=== PATIENT | female | born 1960 | race American Indian/Alaskan Native ===

== ENCOUNTER 2016-11-30 04:33 | Inpatient (IN) ==
[2016-11-20 12:04] LABS: Appearance,Urine CLEAR; Bilirubin,Urine NEG (NEG); Color,Urine YELLOW; Glucose,Urine (UA) NEGATIVE (NEG); Leukocyte Esterase,Urine NEG /uL (NEG); Nitrate,Urine NEG (NEG); Protein,Urine NEG (NEG); Specific Gravity,Urine 1.005 (1.000-1.035); Urine Blood NEG mg/dL (<0.03); Urobilinogen,Urine NEG (NEG)
[2016-11-20 12:39] LABS: Basophils # (Auto) 0 K/mcL (0.0-0.3); Basophils % (Auto) 0.3 % (0.0-2.0); Eosinophils # (Auto) 0.2 K/mcL (0.0-0.7); Lymphocytes # (Auto) 1.8 K/mcL (1.5-4.8); Lymphocytes % (Auto) 23.8 % (15.5-49.0); Mean Cell Volume 88.2 fL (80.0-100.0); Mean Corpuscular HGB Conc 33.1 g/dL (31.0-36.0); Mean Corpuscular Hemoglobin 29.2 pg (26.0-34.0); Monocytes # (Auto) 0.4 K/mcL (0.1-0.9); Monocytes % (Auto) 4.9 % (1.0-12.0); Platelet Count 256 K/mcL (140-440); RBC 4.68 M/mcL (4.00-5.20); Red Cell Distribution Width 14.1 % (11.5-14.5)
[2016-11-20 13:02] LABS: Blood Urea Nitrogen 12 mg/dl (6-20)
[2016-11-30] MEDS ORDERED: CELECOXIB 200 MG CAPSULE PO SCH (06:00)
[2016-11-30] MEDS ORDERED: PREGABALIN 75 MG CAPSULE PO SCH (06:00)
[2016-11-30] MEDS ORDERED: oxyCODONE 10 MG TAB.ER.12H PO SCH (06:00)
[2016-11-30] MEDS ORDERED: ceFAZolin 1 GM VIAL IV SCH (06:00)
[2016-11-30] MEDS ORDERED: ACETAMINOPHEN 500 MG TABLET PO SCH (06:00)
[2016-11-30 06:10] LABS: Basophils # (Auto) 0 K/mcL (0.0-0.3); Basophils % (Auto) 0.4 % (0.0-2.0); Eosinophils # (Auto) 0.2 K/mcL (0.0-0.7); Eosinophils % (Auto) 2.1 % (0.0-7.0); Granulocytes % (Auto) 62.8 % (38.0-78.0); Lymphocytes # (Auto) 2.1 K/mcL (1.5-4.8); Lymphocytes % (Auto) 29.4 % (15.5-49.0); Mean Cell Volume 87.8 fL (80.0-100.0); Mean Corpuscular HGB Conc 33.7 g/dL (31.0-36.0); Mean Corpuscular Hemoglobin 29.6 pg (26.0-34.0); Monocytes # (Auto) 0.4 K/mcL (0.1-0.9); Monocytes % (Auto) 5.3 % (1.0-12.0); Platelet Count 239 K/mcL (140-440); RBC 4.48 M/mcL (4.00-5.20); Red Cell Distribution Width 14.1 % (11.5-14.5)
[2016-11-30 06:13] LABS: Appearance,Urine CLEAR; Bilirubin,Urine NEG (NEG); Color,Urine STRAW; Glucose,Urine (UA) NEGATIVE (NEG); Leukocyte Esterase,Urine NEG /uL (NEG); Nitrate,Urine NEG (NEG); Protein,Urine NEG (NEG); Specific Gravity,Urine 1.006 (1.000-1.035); Urine Blood NEG mg/dL (<0.03); Urobilinogen,Urine NEG (NEG)
[2016-11-30 06:32] LABS: ALT/SGPT 19 U/l (0-40); Albumin 4.3 gm/dL (3.2-5.2); Albumin/Globulin Ratio 1.5 (1.0-2.3); Alkaline Phosphatase 78 U/L (39-117); Blood Urea Nitrogen 12 mg/dl (6-20)
[2016-11-30] MEDS ORDERED: GLYCOPYRROLATE 0.2 MG/ML VIAL IV ONE (07:30)
[2016-11-30] MEDS ORDERED: PROPOFOL 200 MG/20 ML VIAL IV ONE (07:30)
[2016-11-30] MEDS ORDERED: ONDANSETRON 4 MG/2 ML VIAL IV ONE (07:30)
[2016-11-30] MEDS ORDERED: TRANEXAMIC ACID 1,000 MG/10 ML VIAL IV ONE ×2 (07:30→09:13)
[2016-11-30] MEDS ORDERED: DEXAMETHASONE 10 MG/ML VIAL IV ONE (07:30)
[2016-11-30] MEDS ORDERED: KETAMINE 100 MG/ML ML IV ONE (07:30)
[2016-11-30] MEDS ORDERED: MIDAZOLAM 2 MG/2 ML VIAL IV ONE (07:30)
[2016-11-30] MEDS ORDERED: LIDOCAINE HCL/PF 100 MG/5 ML SYRINGE IV ONE (07:30)
[2016-11-30] MEDS ORDERED: HYDROmorphone 2 MG/ML SYRINGE IV PRN ×2 (08:37→09:13)
[2016-11-30] MEDS ORDERED: fentaNYL 100 MCG/2 ML VIAL IV PRN (08:37)
[2016-11-30] MEDS ORDERED: IPRATROPIUM/ALBUTEROL 3 ML AMPUL.NEB NEB PRN (08:37)
[2016-11-30] MEDS ORDERED: METHOCARBAMOL 1,000 MG/10 ML VIAL IV PRN (08:37)
[2016-11-30] MEDS ORDERED: MEPERIDINE 25 MG/ML SYRINGE IV PRN (08:37)
[2016-11-30] MEDS ORDERED: ONDANSETRON 4 MG/2 ML VIAL IV PRN ×2 (08:37→09:13)
[2016-11-30] MEDS ORDERED: BENZOCAINE/MENTHOL 1 LOZENGE PO PRN ×2 (08:37→09:13)
[2016-11-30] MEDS ORDERED: LACTATED RINGERS 1,000 ML IV SCH (08:45)
[2016-11-30] MEDS ORDERED: GENTAMICIN SULFATE 800 MG/20 ML VIAL IR ONE (08:53)
[2016-11-30] MEDS ORDERED: BUPIVACAINE W/EPI 0.5% 50 ML VIAL IJ ONE (08:53)
--- NOTE | 2016-11-30 09:12 | Brief Operative Note ---
Date of procedure: 11/30/16 Pre-op diagnosis: right shoulder rca and bicep tendonistis Post-op diagnosis: same Procedure: Right shoulder bicep tenodesis and reverse tsa Grafts/Implants: Yes Anesthesia: GETA Complications Description: 11/30/16 09:12 none Surgeon: Jose Carlos Senior Technical Analyst: North Bey Estimated blood loss (cc): 30 Specimens Removed/Pathology: none sent Condition: stable Disposition: PACU
[2016-11-30] MEDS ORDERED: TEMAZEPAM 15 MG CAPSULE PO PRN (09:13)
[2016-11-30] MEDS ORDERED: ACETAMINOPHEN 325 MG TABLET PO PRN (09:13)
[2016-11-30] MEDS ORDERED: FLEETS ADULT ENEMA PR PRN (09:13)
[2016-11-30] MEDS ORDERED: BISACODYL 10 MG SUPP.RECT PR PRN (09:13)
[2016-11-30] MEDS ORDERED: POLYETHYLENE GLYCOL 3350 17 GM PACKET PO PRN (09:13)
[2016-11-30] MEDS ORDERED: MAGNESIUM HYDROXIDE 30 ML ORAL.SUSP PO PRN (09:13)
[2016-11-30] MEDS ORDERED: ePHEDrine 50 MG/ML AMPUL IV ONE (09:23)
--- NOTE | 2016-11-30 09:46 | Operative Note ---
DATE OF OPERATION: 11/30/2016 PREOPERATIVE DIAGNOSES: Right shoulder rotator cuff arthropathy and biceps tendinopathy. POSTOPERATIVE DIAGNOSES: Right shoulder rotator cuff arthropathy and biceps tendinopathy. PROCEDURE: Right biceps tenodesis as well a right reverse total shoulder. SURGEON: Jose Carlos MD. JACK STRIP ASSEMBLER: North Bey PA-C. ANESTHESIA: General LMA anesthesia. COMPLICATIONS: None. IMPLANTS: Size 9 cementless stem from Josy, standard thickness poly, a 32 mm glenosphere with a standard metaglene, and one central screw and four locking screws. COMPLICATIONS: None. ESTIMATED BLOOD LOSS: About 20 mL. DESCRIPTION OF PROCEDURE: The patient was brought to the operating room and put to sleep with general LMA anesthesia. Once asleep, the patient had the right shoulder sterilely prepped and draped in the usual sterile fashion. Once we confirmed the preop antibiotics and tranexamic acid had been given and Ioban had been placed over the skin, we then made a deltopectoral approach to the shoulder. I then released the subscap and released the remnants of the biceps tendon. The biceps tendon was placed into the bicipital groove and repaired with a [id number] stitch to the pectoralis major. After this was done, we irrigated thoroughly and dislocated the humerus. After releasing the inferior capsule superior posteriorly, I then made our cut at 30 degrees of retroversion, placed a metal cap over the bone and subluxed posteriorly with a retractor. Performed a 360 degree capsular release around the glenoid, placed the pin at 10 degrees of inclination. Once done, I then reamed up to the size for a 32 implant. A metaglene was placed with a central screw measuring 28. I placed four additional screws, length per nurse's note. I placed a 32 mm glenosphere with 6 mm of offset. I then broached up on the humerus to the size of 9, trialed the 9 with a standard thickness poly. This seemed to work very well. We then placed a 9 stem with a standard thickness poly. This reduced very nicely and irrigated thoroughly. I then repaired the deltopectoral interval with 2-0 vi, closed the skin with 2-0 Vicryl and adhesive closure. Standard dressing was applied. A DonJoy sling was fitted and given to the patient. ARMEN:daniel Job ID: [id number] Doc ID: [id number] Jose Carlos MD
--- NOTE | 2016-11-30 09:48 | XRay Report ---
CLINICAL INFORMATION: Postoperative shoulder TECHNIQUE: Portable AP and Y view COMPARISON: None. FINDINGS: Status post right reverse shoulder arthroplasty. Normal anatomic alignment demonstrated. There has been previous resection of the distal clavicle IMPRESSION: Status post reverse shoulder arthroplasty Interpreted and Authenticated by: Louis Madden 11/30/16
[2016-11-30] MEDS: 0.45 % SODIUM CHLORIDE 1,000 ML IV SCH (13:32)
[2016-11-30] MEDS: 0.9 % SODIUM CHLORIDE 10 ML SYRINGE IV SCH ×2 (13:41→21:40)
[2016-11-30] MEDS: ceFAZolin 1 GM VIAL IV SCH ×2 (15:00→22:50)
[2016-11-30] MEDS: CALCIUM CARBONATE 500 MG TAB.CHEW PO SCH ×2 (15:01→21:40)
[2016-11-30] MEDS ORDERED: SIMVASTATIN 40 MG TABLET PO SCH (21:00)
[2016-11-30] MEDS ORDERED: SENNOSIDES 1 TABLET PO SCH (21:00)
[2016-11-30] MEDS: DOCUSATE SODIUM 100 MG CAPSULE PO SCH (21:40)
[2016-12-01] MEDS: 0.45 % SODIUM CHLORIDE 1,000 ML IV SCH ×2 (00:03→07:11)
[2016-12-01] MEDS: 0.9 % SODIUM CHLORIDE 10 ML SYRINGE IV SCH ×2 (04:55→13:44)
[2016-12-01] MEDS: HYDROcodone/APAP 10/325MG TABLET PO PRN ×2 (06:53→13:44)
[2016-12-01] MEDS: KETOROLAC 15 MG/ML VIAL IV PRN ×2 (06:53→13:44)
[2016-12-01] MEDS ORDERED: metFORMIN 500 MG TAB.XL.24H PO SCH (08:00)
[2016-12-01] MEDS: DOCUSATE SODIUM 100 MG CAPSULE PO SCH (08:22)
[2016-12-01] MEDS: CALCIUM CARBONATE 500 MG TAB.CHEW PO SCH ×2 (08:22→15:01)
[2016-12-01] MEDS ORDERED: METOPROLOL SUCCINATE 25 MG TAB.XL.24H PO SCH (09:00)
[2016-12-01] MEDS ORDERED: LISINOPRIL 10 MG TABLET PO SCH (09:00)
--- NOTE | 2016-12-01 09:28 | Orthopedic Progress Note ---
Subjective Patient information: Note initiated : 12/01/16 at 9:27 am Service Date, if different from initiated Date: [] Patient: Fatimah Amador 56 y/o F admitted on 11/30/16 for Right Reverse Total Shoulder Arthroplasty with . Chief Complaint: [minimal pain and is doing well walking] Objective Vital signs: Vital Signs Temp Pulse Pulse Pulse Resp BP Pulse Ox 12/01/16 08:21 65 94 12/01/16 06:59 99.3 F H 16 121/76 98 12/01/16 04:00 97.7 F 65 14 119/72 98 12/01/16 00:00 97.2 F 66 14 104/68 97 11/30/16 20:00 97.3 F 72 16 120/75 97 11/30/16 16:10 97.8 F 65 16 108/70 95 11/30/16 13:40 87 116/73 95 11/30/16 12:45 72 115/78 93 11/30/16 12:35 65 12 108/73 95 11/30/16 11:49 96.3 F L 65 12 100/64 94 11/30/16 11:30 68 112/72 93 11/30/16 11:00 68 111/74 94 11/30/16 10:45 69 12 110/69 94 11/30/16 10:29 77 10 L 117/76 94 11/30/16 10:15 96.8 F L 76 10 L 119/72 93 11/30/16 10:02 97.7 F 86 12 110/60 93 11/30/16 09:55 97.6 F 83 17 118/64 99 11/30/16 09:40 80 10 L 103/73 99 11/30/16 09:35 79 11 L 87/49 100 Intake and Output 11/30/16 12/01/16 12/01/16 21:59 05:59 13:59 Intake Total 0 / 0 1200 / 1200 Output Total 200 / 200 1200 / 1200 550 / 550 Balance -200 / -200 0 / 0 -550 / -550 Intake: IV 1000 / 1000 Sodium Chloride 0.45% 1, 1000 / 1000 000 ml @ 100 mls/hr IV . Q10H [facility] Rx#:[id number] Oral 0 / 0 200 / 200 Output: Void Amount 200 / 200 1200 / 1200 550 / 550 Other: # Voids 1 Weight 172 lb 8 oz Intake & Output: Intake & Output 11/30/16 12/01/16 12/01/16 21:59 05:59 13:59 Intake Total 0 / 0 1200 / 1200 Output Total 200 / 200 1200 / 1200 550 / 550 Balance -200 / -200 0 / 0 -550 / -550 Weight 172 lb 8 oz Intake: IV 1000 / 1000 Sodium Chloride 0.45% 1, 1000 / 1000 000 ml @ 100 mls/hr IV . Q10H [facility] Rx#:[id number] Oral 0 / 0 200 / 200 Output: Void Amount 200 / 200 1200 / 1200 550 / 550 Other: # Voids 1 Incision: Yes healing Incision clean and dry: Yes Dressing: Yes clean Weight bearing status: full Neurological exam IM: Yes oriented X3, Yes neurovascular intact Extremities exam IM: Yes Foot pink and warm (dc home), Yes neurovascular intact - Labs CBC & BMP: 11/30/16 05:06 11/30/16 05:06 Labs: Orthopedic Labs 11/30/16 11/30/16 11/20/16 05:06 05:06 09:55 PT 13.3 13.1 INR 1.0 1.0 APTT 25 26 11/30/16 11/20/16 05:06 09:55 Hgb 13.3 13.7 Hct 39.3 41.3
--- NOTE | 2016-12-01 09:32 | Discharge Summary ---
Ortho Discharge - TSA - Patient Instructions Diet: Regular Diet Activity: activity as tolerated, weight bearing as tolerated Total Shoulder Protocol: Leave immobilizer in place except for bathing and ROM. Abduction pillow. Continue to wear sling until seen by physician. Codman Pendulum : These exercises use momentum produced by your body to move your shoulder joint. Bend your knees and shift your weight to your front leg, then back, allowing your arm to swing in the same directions. Using the same technique, alternately shift your weight between your right and left legs, allowing your arm to swing from side to side. These exercises are also performed in counterclockwise and clockwise circular motions. Typically these exercises are performed several times per day, for a set number repetitions or minutes, such as 20 times in a row or 5 minutes at a time. Dressing Care: Kailynel Ag - leave on for 5 days Patient Education: Shoulder Arthroplasty (DC) Additional Instructions: Discharge Instructions: Do the exercises at home that physical therapy gave you. You are scheduled to start physical therapy at [facility] ([phone]) on at 11:00 am, please arrive 15 minutes early for paperwork. Take your prescription, photo ID, insurance cards, and current medication list with you to your first physical therapy appointment. Take your prescription to hot die picker any medication or equipment (such as walker, crutches, toilet riser or C.P.M.) Wear comfortable clothing for your physical therapy. No weight bearing with right hand/arm. Keep arm in the immobilizer except for showering and exercises. You have Dermabond (a dressing with a mesh-like appearance), leave open to air. Do not remove this dressing. You may start showering on post op day #2. The Dermabond dressing can get wet, do not scrub dressing. Pat dry. To avoid constipation while taking any narcotic pain medication, take an over the counter stool softener/laxative. Use ice packs as directed, on for 20 minutes at a time throughout the day. This and elevation will help with pain and swelling. Call your physician for fevers above 100.5 or pain not controlled by medication. Your prescriptions are with your discharge information. Some medications were electronically transmitted to your pharmacy of choice. - Follow Up Plan Follow Up Appointments: Jose Carlos MD [Physician] - 12/13/16 10:40 am Disposition: Home, Self-Care Prognosis: Good Rehab Potential: Good I certify that the patient requires SNF services: No Overall status at discharge: patient is progressing back to baseline - Orders For Discharge Prescriptions: Aspirin [Ecotrin] 325 mg PO DAILY #14 tab.ec HYDROcodone/APAP 10/325MG [[place] 10/325Mg] 1 - 2 tab PO Q4H PRN #60 tablet PRN Reason: Pain Additional Discharge Orders: Physical Therapy at Discharge - TSA Location: Determined By Patient Brace/Splint Location: Determined By Patient
[2016-12-01] MEDS ORDERED: FLU VACC QS2017-18 36MOS UP/PF 60 MCG/0.5 ML SYRINGE IM ONE ×2 (16:40→17:38)
[2016-12-02] MEDS ORDERED: FERROUS SULFATE 325 MG TABLET PO SCH (08:00)
== END 2016-12-01 17:45 | disposition home or self-care (01) | DRG 483 ==
LOC: MEDSUR 04:33
PROVIDERS: ADMIT Orthopaedic Surgery; ATTEND Orthopaedic Surgery